=== PATIENT | female | born 1975 | race Caucasian/White ===

== ENCOUNTER → 2017-11-22 | Outpatient (CLI) | payer OTHER ==
--- NOTE | 2017-11-22 15:02 | Diagnostic Imaging Report ---
Exam: Left kneeCT without contrast. History: Knee pain. Swelling. Bruise. Comparison:None Technique: Utilizing a 64-slice multidetector CT, axial imaging was performed through the left knee without IV contrast. Multiplanar reformation was performed. Findings: There is no acute fracture, subluxation or avascular necrosis. There is moderate tricompartmental degenerative arthrosis most pronounced in the medial compartment with joint space loss and peripheral osteophytosis. No osseous erosion. Small bone island in the distal medial femoral condyle. Mild diffuse muscle atrophy. No radiopaque foreign body. Superficial soft tissue edema along the anterior knee likely due to a contusion. No focal fluid collection. Impression: Superficial soft tissue edema along the anterior knee likely due to a contusion. No focal fluid collection. Moderate tricompartmental degenerative arthrosis most pronounced in the medial compartment Signed by: Dr. Malcolm Charles M.D. on 11/22/2017 2:59 PM
== END ==
LOC: CT 13:43
PROVIDERS: ATTEND Family Medicine
DX: M25.562 Pain in left knee (principal)